=== PATIENT | female | born 2005 | race Caucasian/White ===

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

== ENCOUNTER 2024-07-25 09:31 | Emergency (ER) | payer OTHER, SELFPAY ==
[2024-07-25 09:49] VITALS: BP 122/73; PULSE 65; RESP 16; TEMP 36.6; O2SAT 99; BMI 36.2
--- NOTE | 2024-07-25 10:06 | EXP.UTC ---
Discharge Plan Disposition Patient Disposition: Home, Self-Care Condition: Good Prescriptions Prescriptions: New azithromycin [Zithromax] 250 mg tablet 250 mg PO UD DOSE PK Qty: 6 0RF Rx Instructions: Take two (2) tablets today, then one (1) tablet days #2 thru #5 methylprednisolone 4 mg Tablets,Dose Pack 4 mg PO DIRECTED 6 Days Qty: 21 0RF Rx Instructions: Take 1 pack as directed for 6 days cnyhmjxmqtxgmeg-[id number] [Bromfed DM] 2-30-10 mg/5 mL Syrup 5 ml PO Q6H PRN (Reason: Cough) Qty: 240 0RF No Action diphenhydramine HCl [Allergy] 12.5 mg/5 mL Liquid 12.5 mg PO HS Referrals Follow up/Referrals: Chika Parish MD [Primary Care Provider] - See instructions Activity Restrictions/Add. Instructions Additional Instructions/Restrictions: Drink plenty of fluids. Take tylenol or ibuprofen for pain or fever. Take the medications as directed. Follow up with your regular doctor. GO TO THE ER FOR ANY WORSENING SYMPTOMS Clinical Impressions Clinical Impression: Sinusitis Instructions Patient Instructions: Sinusitis, DI for Sinusitis Print Language Print Language: Singaporean Discharge ED Provider: Gunnar Singh [facility] [place] HPI General Stated complaint: stomach pain, headache, congestion Mode of Arrival: Ambulatory Source of Information: Patient Time Seen by Provider: 07/25/24 10:06 Description of Symptoms (Recalled from Triage Doc. by RN): NAUSEA, CONGESTION, HEADACHE HEENT Symptoms (Recalled from RN notes): Yes (HEADACHE, CONGESTION) Resp Symptoms (Recalled from RN notes): No Skin Symptoms (Recalled from RN notes): No MS Symptoms (Recalled from RN notes): No Functional Status (Recalled from RN notes): wdl Related Data Home Medications ?Medication ?Instructions ?Recorded ?Confirmed diphenhydramine HCl 12.5 mg/5 mL 12.5 mg PO HS 07/25/24 07/25/24 oral liquid (Allergy) Previous Rx's ?Medication ?Instructions ?Recorded azithromycin 250 mg tablet 250 mg PO UD DOSE PK #6 tabs 07/25/24 (Zithromax) [id number]-[id number] 5 ml PO Q6H PRN Cough #240 mL 07/25/24 2 mg-30 mg-10 mg/5 mL oral syrup (Bromfed DM) methylprednisolone 4 mg tablets in 4 mg PO DIRECTED 6 days #21 tabs 07/25/24 a dose pack Allergies Allergy/AdvReac Type Severity Reaction Status Date / Time Cefaclor Allergy Unknown Uncoded 01/19/23 08:46 Cephalosporin Allergy Unknown Uncoded 01/19/23 08:46 Worker's Comp Is this a Worker's Comp case?: No [facility] Disclaimer: The information contained in this section may have been updated after the patient was seen, as this information can be updated by other users. Medical History (Updated 07/25/24 @ 10:35 by Gunnar Singh APRN) Thyroid disease Gallbladder disease Surgical History (Updated 07/25/24 @ 09:55 by Katiuska Bennett RN) History of tonsillectomy and adenoidectomy Hx of tonsillectomy History of laparoscopic cholecystectomy History of wisdom tooth extraction, class II edentulism H/O myringotomy Family History Other Family history of diabetes mellitus type II Family history of gallbladder disease Family history of hyperlipidemia Family history of hypertension Social History Smoking Status: Never smoker alcohol intake: never substance use type: denies use current occupational status: student Travel in the last 8 weeks: None household members: family housing: house marital status: single education level: high school do you feel safe at home: Yes victim of physical abuse: No victim of emotional abuse: No victim of sexual abuse: No would you like helpful sources: No ROS Obtained: Yes All systems reviewed & no additional complaints except as documented Constitutional Constitutional: Reports poor appetite Eyes Eyes: Reports system reviewed and no additional complaints, except as documented ENT Ears, Nose, Mouth, and Throat: Reports as per HPI Cardiovascular Cardiovascular: Reports system reviewed and no additional complaints, except as documented and Denies chest pain Respiratory Respiratory: Denies shortness of breath, Denies chest congestion, Reports cough, Denies stridor and Denies wheezing Gastrointestinal Gastrointestingal: Reports system reviewed and no additional complaints, except as documented; Denies abdominal pain, diarrhea or vomiting Musculoskeletal Musculoskeletal: Reports system reviewed and no additional complaints, except as documented and Denies arthralgias Integumentary/Breasts Skin/Breast: Reports system reviewed and no additional complaints, except as documented and Denies rash Neurologic Neurologic: Denies paresthesias Allergic/Immunologic Allergic/Immunologic: Denies wheezing Physical Exam General General appearance: alert and in no apparent distress Head Head exam: atraumatic, normocephalic and normal inspection Eye Eye exam: Present normal appearance, PERRL and EOMI ENT ENT exam: Present normal exam, normal oropharynx, mucous membranes moist, TM's normal bilaterally and normal external ear exam Neck Neck exam: Present normal inspection, full ROM and trachea midline; Absent meningismus or lymphadenopathy Chest Chest inspection: Present normal inspection and symmetric chest wall rise; Absent tenderness Respiratory Respiratory exam: Present normal lung sounds bilaterally; Absent respiratory distress Cardiovascular Cardiovascular exam: Present regular rate and normal rhythm; Absent JVD Abdominal Exam Abdominal exam: Present soft and normal bowel sounds; Absent distention, tenderness or guarding Extremities Exam Extremities exam: Present normal inspection, full ROM and normal capillary refill; Absent calf tenderness Back Exam Back exam: Present normal inspection; Absent tenderness Neurological Exam Neurological exam: Present alert and oriented X3 Psychiatric Psychiatric exam: Present normal affect and normal mood Skin Skin exam: Present warm, dry, intact and normal color Lymphatic Lymphatic Findings: no adenopathy Medical Decision Making Medical Records Medical records reviewed: No I reviewed the patient's medical records. Vik Inquiry Pt receiving controlled substance: No Vital Signs: 07/25/24 09:49 Temperature 97.9 F Temperature Source Oral Pulse Rate [Left Brachial] 65 Respiratory Rate 16 Blood Pressure [Left Arm] 122/73 Blood Pressure Mean [Left Arm] 89 02 Sat by Pulse Oximetry 99
[2024-07-25 10:38] VITALS: BP 122/73; PULSE 65; RESP 16; TEMP 36.6; O2SAT 99
== END 2024-07-25 10:40 | disposition home or self-care (01) ==
PROVIDERS: Emergency Provider Nurse Practitioner Family; PCP Family Medicine
DX: J01.90 Acute sinusitis, unspecified (principal); R51.9 Headache, unspecified; R11.0 Nausea
CPT/HCPCS: 99204; 99212; G0463